=== PATIENT | female | born 1985 | race Two or more races ===

== ENCOUNTER 2025-03-11 15:41 | Emergency (ER) | payer MEDICAID, SELFPAY ==
[2025-03-11 15:52] VITALS: BP 115/77; PULSE 64; RESP 20; TEMP 36.4; O2SAT 96
--- NOTE | 2025-03-11 16:04 | XR_ITS ---
Examination: Pelvic ultrasound, transabdominal, complete Technique: Transabdominal ultrasound of the pelvis performed using grayscale imaging Date and time of exam: March 11, 2025 1610 hrs., Comparison August 04, 2014 Indications: Vaginal bleeding and pelvic pain onset today Findings: Uterus 8.6 cm endometrial stripe 1.0 cm No uterine mass or intrauterine gestation Right ovary 2.6 cm arterial flow Left ovary 2.1 cm arterial flow 15 mm follicular cyst Impression: No uterine mass or intrauterine gestation
[2025-03-11 16:53] LABS: Collection Type, Urine Clean Catch
[2025-03-11 17:06] LABS: Bilirubin,Urine Negative (Negative); Blood,Urine Negative (Negative); Clarity,Urine Clear (Clear/Hazy); Color,Urine Yellow (Lt Yel-Yel); Glucose, Urine Negative (Negative); Ketones,Urine Negative (Negative); Leukocyte Esterase,Urine Negative (Negative); Nitrite,Urine Negative (Negative); PH,Urine 6.5 (5.0-7.0); Protein,Urine Trace (Neg - Trace); RBC,Urine 8 /hpf (0-3); Specific Gravity,Urine 1.042 (1.001-1.035); Squamous Epithelial Cell,Urine 3 /hpf (0-5); Urobilinogen,Urine Negative mg/dL (0.0-1.0); WBC,Urine 1 /hpf (0-5)
[2025-03-11 17:14] LABS: Basophils # (Auto) 0.1 Thou/mm3 (0.0-0.2); Basophils % (Auto) 1 % (0-2.5); Eosinophils # (Auto) 0.2 Thou/mm3 (0.0-0.5); Eosinophils % (Auto) 3 % (0-10); Hematocrit 39.0 % (36.0-46.0); Hemoglobin 13.1 g/dL (12.0-16.0); Immature Granulocytes Auto 0.05 Thou/mm3 (0.00-0.00); Lymphocytes # (Auto) 1.9 Thou/mm3 (1.0-4.8); Lymphocytes % (Auto) 28 % (10-50); Mean Corpuscular HGB Conc 33.6 g/dl (31.0-37.0); Mean Corpuscular Hemoglobin 29.3 pg (25.0-35.0); Mean Corpuscular Volume 87 fL (80-100); Monocytes # (Auto) 0.7 Thou/mm3 (0.0-0.8); Monocytes % (Auto) 10 % (0-12); Neutrophils # (Auto) 4.1 Thou/mm3 (1.8-7.7); Neutrophils % (Auto) 59 % (37-80); Nucleated Red Blood Cell # 0.00 Thou/mm3 (0.00-0.00); Nucleated Red Blood Cell % 0 /100 WBC (0); Platelet Count 334 Thou/mm3 (140-440); RDW Standard Deviation 40.6 fL (36.4-46.3); Red Blood Count 4.47 Miln/mm3 (4.00-5.20); White Blood Count 7.0 Thou/mm3 (3.6-11.0)
--- NOTE | 2025-03-11 17:30 | EDRME_ITS ---
Rapid Medical Screening Exam RME Arrival date/time: 03/11/25 15:41 39-year-old female with no known medical history presents to the emergency room with a chief complaint of vaginal bleeding, nausea, vomiting that began today at 2 AM I have greeted and performed a focused initial assessment of this patient. A com prehensive ED assessment and evaluation of the patient, analysis of all test results, and completion of the medical decision making process will be conducted by additional ED providers. Chief Complaint: Vaginal Bleeding Time Seen by Provider: 03/11/25 15:45 Vital signs: Vital Signs Temperature 97.6 F 03/11/25 15:52 Pulse Rate 64 03/11/25 15:52 Respiratory Rate 20 03/11/25 15:52 Blood Pressure 115/77 03/11/25 15:52 Pulse Oximetry (%) 96 03/11/25 15:52 Oxygen Delivery Method Room Air 03/11/25 15:52 Vital signs reviewed by provider: Yes
[2025-03-11 17:31] LABS: Alanine Aminotransferase 16 U/L (10-49); Albumin, Serum 4.2 gm/dL (3.5-5.0); Albumin/Globulin Ratio 1.6 (1.2-2.2); Alkaline Phosphatase 82 U/L (46-116); Anion Gap 7 (7-16); Aspartate Amino Transferase 12 U/L (0-34); BUN/Creatinine Ratio 20 Ratio (12-20); Bilirubin,Total 0.6 mg/dL (0.3-1.2); Blood Urea Nitrogen 12 mg/dL (9-23); Calcium 9.3 mg/dL (8.3-10.6); Calcium (Corrected) 9.3 mg/dL (8.5-10.1); Carbon Dioxide 25.4 mMol/L (20.0-31.0); Chloride 108 mMol/L (98-107); Creatinine (Component) 0.6 mg/dL (0.6-1.3); Estimated Creatinine Clearance 104.2 mL/min (>60); Globulin 2.6 gm/dL (2.3-3.5); Glucose 89 mg/dL (74-106); Osmolality,Calculated 278 (275-295); Potassium 4.0 mMol/L (3.4-5.1); Sodium 140 mMol/L (136-145); Total Protein 6.8 gm/dL (5.7-8.2); eGFR > 60 See Note
[2025-03-11 17:39] LABS: INR 1.0 (0.9-1.3); Partial Thromboplastin Time 35.8 Seconds (22.0-36.0); Prothrombin Time 10.4 Seconds (9.0-12.2)
[2025-03-11 19:01] VITALS: BP 105/76; PULSE 63; RESP 18; TEMP 36.5; O2SAT 97
[2025-03-11 19:01] LABS: HCG Qualitative,Urine Negative
[2025-03-11] MEDS: HYDROcodone/APAP 5/325 TABLET 1 TAB PO (19:29)
--- NOTE | 2025-03-11 20:08 | EDNOTE_ITS ---
ED General RME/HPI General Chief complaint: Vaginal Bleeding Stated complaint: vag bleed and abd pain Time Seen by Provider: 03/11/25 15:45 Arrival date/time: 03/11/25 15:41 CC: Low center abdominal pain that radiates up into the upper abdomen. Patient states she also passed a large clot with some cramping yesterday yesterday. Patient also complaining of intermittent nausea all onset at 1 AM this morning denies chest pain fever chills shortness of breath or difficulty breathing. RME / HPI RME / HPI narrative: 03/11/25 15:41 39-year-old female with no known medical history presents to the emergency room with a chief complaint of vaginal bleeding, nausea, vomiting that began today at 2 AM I have greeted and performed a focused initial assessment of this patient. A comprehensive ED assessment and evaluation of the patient, analysis of all test results, and completion of the medical decision making process will be conducted by additional ED providers. Related Data Previous Rx's ?Medication ?Instructions ?Recorded ketorolac 10 mg tablet 10 mg PO Q8H #14 tabs Allergies Allergy/AdvReac Type Severity Reaction Status Date / Time No Known Allergies Allergy Verified 06/21/23 09:50 Review of Systems Review of Systems Narrative Review of Systems: GEN: No fever, no chills, no weight loss EYES: No discharge, no visual changes, no pain HEENT: No ear pain, no congestion, no sore throat PULM: No shortness of breath, no cough, no congestion CV: No chest pain, no dyspnea on exertion, no palpitations GI: No nausea, no vomiting, no diarrhea, no pain, no constipation : No frequency, no urgency, no dysuria MUSC/SKEL: No joint pain, no back pain SKIN: No rash PSYCH: No hallucinations, no depression HEME/LYMPH: No easy bleeding or bruising tendencies NEURO: No weakness, no headache Past Medical History Past Medical History CARDIAC: Negative Congestive Heart Failure RESPIRATORY: Negative Chronic Obstructive Pulmonary Disease (COPD) GENITOURINARY: Negative Renal Disease ENDOCRINE: Negative Diabetes Mellitus Type 1 or Diabetes Mellitus Type 2 Social History SMOKING STATUS: Never smoker ED Exam Narrative Physical exam: [General: Obese not in any acute distress Head normocephalic HEENT: Within acceptable limits Neck is supple nontender Chest equal chest rise nontender to palpation Respiratory: Clear to auscultation no wheezes crackles or rubs CV: Rate rhythm is regular no murmurs rubs or clicks Abdomen is distended secondary to body habitus soft nontender no masses positive bowel sounds all 4 quadrants Back: No CVA tenderness no spinous process tenderness from cervical spine thoracic and lumbar spine Skin: Intact no petechiae rash induration ulceration or crepitus Extremities: Moving all extremity against resistance cap refill less than 2 seconds neurosensory intact Neuro: Awake alert oriented x3 Glascow coma 15 no focal deficits] Course Course Course Narrative: Reassessment of this patient at 2009, the patient is resting comfortably not in any acute distress. I have low index suspicion any acute finding patient to be discharged home with Toradol if there is a worsening of symptoms she can follow- up with her primary care doctor or return the emergency room medially for further evaluation. Quality Measures none Orders Category Date Time Status US pelvic complete Stat Exams 03/11/25 16:04 Completed CBC Stat Lab 03/11/25 16:50 Completed CMP [Comprehensive Metabolic Panel] Stat Lab 03/11/25 16:50 Completed HCG Qualitative,Urine Stat Lab 03/11/25 16:40 Completed PT [Prothrombin Time with INR] Stat Lab 03/11/25 16:50 Completed PTT [Partial Thromboplastin Time] Stat Lab 03/11/25 16:50 Completed UA [Urinalysis] Stat Lab 03/11/25 16:40 Completed Urinalysis, C/S if Indicated Stat Lab 03/11/25 18:51 Ordered HYDROcodone*/APAP 5/325 [Reasnor 5/325] Med 03/11/25 19:19 Discontinued 1 tab PO X1 ONE oxyCODONE/APAP 5/325 [Percocet 5/325] Med 03/11/25 18:47 Discontinued 1 tab PO X1 ONE Vital Signs Vital signs: Vital Signs Temperature 97.6 F 03/11/25 15:52 Pulse Rate 64 03/11/25 15:52 Respiratory Rate 20 03/11/25 15:52 Blood Pressure 115/77 03/11/25 15:52 Pulse Oximetry (%) 96 03/11/25 15:52 Oxygen Delivery Method Room Air 03/11/25 15:52 Discharge Plan Plan Patient Disposition: HOME (Self Care) Patient condition on transfer: Stable Prescriptions/Referrals Prescriptions/Med Rec: New ketorolac 10 mg tablet 10 mg PO Q8H Qty: 14 0RF Rx Instructions: maximum total duration of 5 days from all oral, intranasal, or parenteral formulations Referrals: Cayden Gracia MD [Primary Care Provider, Family Practice] - In 1 week Problem List Clinical Impression: Abdominal pain Patient/Caregiver Discharge Instructions Education Materials: Abdominal Pain Print Language: Belarusian Stand Alone Forms: Apoorva Award Info., Patient Portal Info Letter, Work/School Yemi KWONG/PIERCING MACHINE OPERATOR Supervising Physician ELENITA/DEVIN Supervising Physician: Victor M Méndez ENP [facility] Clinical Information Provided by: patient Medical Records reviewed [facility] Meds/Rx considered, not ordered None Labs/Rad/Tests considered, not ordered None Chronic Illness/Social Conditions which may negatively complicate care or outcome(s)-explain: None or not appli cable EKG EKG not done Labs Labs: interpreted by me Lab(s) Interpretation(s): CBC shows no acute leukocytosis anemia thrombocytopenia Coags within acceptable limits CMP shows a chloride 108 otherwise no other electrolyte imbalances renal impairment transaminitis or T. bili elevation Urine shows spec gravity 1.042 no leukocyte esterase or nitrites. 8 RBCs and no bacteria. Imaging Imaging interpretation: interpreted by me Imaging Interpretation(s): Pelvic ultrasound is negative for any acute finding. Medication Administration(s) none Medication Administration History Discontinued Medications Hydrocodone Bitart/Acetaminophen (Hydrocodone/Apap 5/325 Tablet) 1 tab PO X1 ONE Stop: 03/11/25 19:20 Last Admin: 03/11/25 19:29 Dose: 1 tab Documented By: [email or web address] Oxycodone/Acetaminophen (Oxycodone/Apap 5/325 Tablet) 1 tab PO X1 ONE Stop: 03/11/25 18:48
[2025-03-11 20:36] VITALS: BP 99/71; PULSE 72; RESP 18; O2SAT 97
--- NOTE | 2025-03-12 10:41 | PD.EDRME ---
Rapid Medical Screening Exam RME Arrival date/time: 03/11/25 15:41 03/11/25 15:41 39-year-old female with no known medical history presents to the emergency room with a chief complaint of vaginal bleeding, nausea, vomiting that began today at 2 AM I have greeted and performed a focused initial assessment of this patient. A comprehensive ED assessment and evaluation of the patient, analysis of all test results, and completion of the medical decision making process will be conducted by additional ED providers. Chief Complaint: Vaginal Bleeding Time Seen by Provider: 03/11/25 15:45 Vital signs: Vital Signs Temperature 97.6 F 03/11/25 15:52 Pulse Rate 64 03/11/25 15:52 Respiratory Rate 20 03/11/25 15:52 Blood Pressure 115/77 03/11/25 15:52 Pulse Oximetry (%) 96 03/11/25 15:52 Oxygen Delivery Method Room Air 03/11/25 15:52 RME Narrative: 03/11/25 15:41 39-year-old female with no known medical history presents to the emergency room with a chief complaint of vaginal bleeding, nausea, vomiting that began today at 2 AM I have greeted and performed a focused initial assessment of this patient. A comprehensive ED assessment and evaluation of the patient, analysis of all test results, and completion of the medical decision making process will be conducted by additional ED providers.
== END 2025-03-11 20:37 | disposition home or self-care (01) ==
PROVIDERS: Nurse Practitioner Family; Emergency Provider Family Medicine; PCP Family Medicine
DX: R10.9 Unspecified abdominal pain (principal); N93.9 Abnormal uterine and vaginal bleeding, unspecified; R10.2 Pelvic and perineal pain
CPT/HCPCS: 36415; 76856; 80053; 81001; 81025; 85025; 85610; 85730; 99283; A9270